=== PATIENT | female | born 2000 | race Hispanic/Latino ===

== ENCOUNTER 2024-09-03 05:47 | Day surgery (SDC) | payer BC ==
[2024-09-02 09:00] VITALS: BMI 28.3
[2024-09-03 06:44] LABS: Hematocrit 38.1 % (34.9-44.5)
[2024-09-03] MEDS ORDERED: Lidocaine 1% PF 5 ML VIAL ONE (06:47)
[2024-09-03] MEDS ORDERED: PROPOFOL 40 ML ONE (06:47)
[2024-09-03] MEDS ORDERED: Dexamethasone 4 mg/ml Vial ONE (06:47)
[2024-09-03] MEDS ORDERED: Ondansetron PF 4 MG/2 ML Vial ONE (06:47)
[2024-09-03] MEDS ORDERED: fentaNYL 50 mcg/mL 1 mL Vial ONE ×2 (06:48→09:17)
[2024-09-03] MEDS ORDERED: Dexmedetomidine 200 MCG/2 ML VIAL ONE (06:48)
[2024-09-03 06:53] LABS: BHCG - Serum Negative (NEGATIVE); Pregs Control Background? CLEAR/WHITE (CLR/WHITE); Pregs Control Bar Appear? YES (CONTROL BAR)
[2024-09-03] MEDS ORDERED: Mupirocin 2% Ointment 22 GM Tube ONE (07:03)
[2024-09-03] MEDS ORDERED: Lidocaine 1% w/Epinephrine 1:200K 30 ML VIAL ONE (07:03)
[2024-09-03] MEDS ORDERED: Midazolam HCl 2 mg/2 ml Vial ONE (07:12)
[2024-09-03] MEDS ORDERED: PHENYLEPHRINE-NS 100 MCG/ML 10 ML SYRINGE ONE (07:47)
[2024-09-03] MEDS ORDERED: HYDROcodone/Acetaminophen 5/325 mg Tablet ONE (09:47)
== END 2024-09-03 10:25 | disposition home or self-care (01) ==
LOC: CSHSDC 05:47
PROVIDERS: ATTEND Specialist
PROC: 09Q10ZZ Repair Left External Ear, Open Approach (ICD-10-PCS; principal; 2024-09-03)
PROC: 09B40ZZ Excision of Left External Auditory Canal, Open Approach (ICD-10-PCS; principal; 2024-09-03)
DX: Q18.1 Preauricular sinus and cyst (principal); H60.42 Cholesteatoma of left external ear
CPT/HCPCS: 36415; 84703; 85014; 88304; J1100; J2250; J2405; J2704; J3010